=== PATIENT | female | born 1965 | race African-American/Black ===

== ENCOUNTER 2019-04-27 20:12 | Emergency (ER) | payer SELFPAY ==
[~2019-04-27] VITALS: Ht 162.6 cm; Wt 50.0 kg
[2019-04-27 20:18] VITALS: BP 157/100
== END 2019-04-27 21:22 | disposition left against medical advice (07) ==
LOC: ER 20:12
DX: Z53.21 Procedure and treatment not carried out due to patient leaving prior to being seen by health care provider (principal)
CPT/HCPCS: 93005